=== PATIENT | male | born 1945 | race Caucasian/White ===

== ENCOUNTER 2016-10-20 21:43 | Emergency (ER) | payer MEDICARE ==
[2016-10-20] MEDS ORDERED: Acetaminophen 500 MG TAB ONE (22:02)
[2016-10-20 22:30] LABS: #Basophils 0.1 thou/uL (0.0-0.2); #Eosinphils 0.1 thou/uL (0.0-0.7); Hemoglobin 13.9 g/dL (14.0-18.0); Mean Corpuscular Volume 93.5 fl (80.0-94.0)
[2016-10-20 22:38] LABS: #Lymphocytes 0.5 thou/uL (1.20-3.40); #Monocytes 0.7 thou/uL (0.11-0.59); #Neutrophils 7.4 thou/uL (1.40-6.50); %Basophils 0.9 % (0.0-1.0); %Eosinophils 1.3 % (0.0-10.0); %Lymphocytes 5.7 % (21.0-51.0); %Monocytes 7.8 % (0.0-10.0); %Neutrophils 84.3 % (42.0-75.0); Mean Corpuscular HGB CONC 32.3 g/dL (32.0-36.0); Mean Corpuscular Hemoglobin 30.2 pg (27.0-31.0); Mean Platelet Volume 8.8 fL (7.4-10.4); Platelet Count 144 thou/uL (130-400); RBC Distribution Width 13.7 % (11.5-14.5); White Blood Cell (WBC) Count 8.8 thou/uL (4.8-10.8)
--- NOTE | 2016-10-20 22:38 | RAD ---
TWO VIEWS CHEST: Date: 10-20-16 Provided Clinical History: Fever. FINDINGS: Comparison 12-07-14. Cardiac and mediastinal silhouette is unchanged in appearance. Vascular calcifications noted involv ing the aortic arch. Elevation of the right hemidiaphragm is again seen. Degenerative changes invo lving the spine. No focal consolidation, pleural fluid or pneumothorax apparent. IMPRESSION: No evidence for an acute cardiopulmonary process. POS: [facility]
[2016-10-20 22:45] LABS: ALT (SGPT) 66 U/L (0-55); AST (SGOT) 95 U/L (5-34); Albumin 4.4 g/dL (3.4-4.8); Alkaline Phosphatase 105 U/L (40-150); Anion Gap 21 mmol/L (10-20); BUN (Urea Nitrogen) 25 mg/dL (8.4-25.7); Bilirubin, Total 0.5 mg/dL (0.2-1.2); Calc. Creatinine Clearance 0 mL/min (70-130); Calcium 9.9 mg/dL (7.8-10.44); Carbon Dioxide 27 mmol/L (23-31); Chloride 101 mmol/L (98-107); Estimated GFR-MDRD 45; Globulin 2.5 g/dL (2.4-3.5); Glucose 104 mg/dL (80-115); Potassium 4.3 mmol/L (3.5-5.1); Protein, Total 6.9 g/dL (5.8-8.1); Sodium 145 mmol/L (136-145)
[2016-10-20 22:49] LABS: Bilirubin Negative (Negative); Blood, Urine Trace (Negative); Clarity Clear (Clear); Glucose, Urine (Dipstick) Negative (Negative); Leukocyte Negative (Negative); Nitrite Negative (Negative); Protein, Urine (Dipstick) 30 mg/dL (Neg-Trace); Specific Gravity, Urine 1.025 (1.005-1.030); Urobilinogen 0.2 mg/dL (0.2-1.0)
[2016-10-20 23:05] LABS: RBC/HPF 0-3 HPF (0-3); WBC/HPF 0-3 HPF (0-3)
[2016-10-20 23:06] LABS: Bacteria/HPF Rare-Few HPF (None Seen); Yeast-All Forms Rare HPF (None Seen)
--- NOTE | 2016-10-21 02:19 | ERRECORD ---
[facility] EMERGENCY RECORD HPI FEVER (ThuOct 21, 2016 00:26 LLDO) CHIEF COMPLAINT: Patient presents for evaluation of fever, Measured maximum temperature 101 to 101.9 degrees. HISTORIAN: History provided by patient, History provided by patient's spouse, see triage note. pt noted fever earlier this afternoon. has had no other s-sx in any system. feels perfectly normal. LOCATION: No localizing symptoms. QUALITY: denies any pain. SEVERITY: Currently there are no symptoms, Maximum severity of pain rated as 0/10, Current severity of pain rated as 0/10. TIME COURSE: Sudden onset of symptoms. ASSOCIATED WITH: No associated symptoms, Denies any other complaints. EXACERBATED BY: Patient's condition exacerbated by nothing. RELIEVED BY: Patient's condition relieved by nothing. ROS CONSTITUTIONAL: Negative constitutional review of systems. (ThuOct 21, 2016 00:30 LLDO) EYES: Negative eye review of systems, Historian denies eye pain, denies eye redness, denies eye discharge. (ThuOct 21, 2016 00:31 LLDO) ENT: Negative ears, nose, throat review of systems, Historian denies otalgia, denies rhinorrhea, denies sinus pain, denies sore throat. (ThuOct 21, 2016 00:31 LLDO) CARDIOVASCULAR: Negative cardiovascular review of systems, Historian denies chest pain, no radiation, Historian denies diaphoresis, denies paroxysmal nocturnal dyspnea, denies syncope. (ThuOct 21, 2016 00:31 LLDO) RESPIRATORY: Negative respiratory review of systems, Historian denies cough, denies shortness of breath, denies sputum. (ThuOct 21, 2016 00:31 LLDO) GI: Negative gastrointestinal review of systems, Historian denies abdominal pain, denies constipation, denies diarrhea, denies nausea, denies vomiting. (ThuOct 21, 2016 00:31 LLDO) MUSCULOSKELETAL: Negative musculoskeletal review of systems, Historian denies arthralgias, denies fall, denies injury, denies myalgias. (ThuOct 21, 2016 00:31 LLDO) NEUROLOGIC: Negative neurologic review of systems, Historian denies confusion, denies focal weakness, denies mental status changes, denies sensory changes. (ThuOct 21, 2016 00:31 LLDO) HEMO/LYMPHATIC: Normal hematologic/lymphatic system review, Historian denies abnormal blood clotting, denies gum bleeding, denies petechiae. (ThuOct 21, 2016 00:31 LLDO) ALLERGIC/IMMUNOLOGIC: Normal allergy/immunologic system review, Historian denies eczema, denies environmental allergies, denies food allergies. (ThuOct 21, 2016 00:31 LLDO) PSYCHIATRIC: Negative psychiatric review of systems, Historian denies alcohol abuse, denies anxiety, denies depression, denies drug abuse, denies hallucinations. (ThuOct 21, 2016 00:31 LLDO) &a-1R&a+25V*p+0X*[id number]*c202B*c15G*c2P*p-0X&a-25V&a+1R Name: Tato Zeng : 1945 M70 MedRec: [id number] AcctNum: [id number] Prepared: ThuOct 21, 2016 01:07 by Interface Page 1 of 4 pMD [facility] EMERGENCY RECORD NOTES: All systems reviewed, negative except as described above. (ThuOct 21, 2016 00:30 LLDO) PAST MEDICAL HISTORY MEDICAL HISTORY: Past medical history includes history of hypertension, which has been treated, Flu vaccine up to date, Tetanus immunization up to date, Pneumococcal vaccine up to date, , Tetanus immunization up to date, Pneumococcal vaccine up to date, Past medical history includes history of hyperlipidemia, Past medical history includes history of hypertension, which has been treated, Past medical history includes neurological disease, , Date of immunization: 2012, Past medical history includes vascular disease history, abdominal aortic aneurysm, Notes: , Flu vaccine up to date, Tetanus immunization up to date, Past medical history includes genitourinary history, BLADDER CA, Past medical history includes history of hypertension, which has been treated, Patient is compliant, Past medical history includes neurological disease, CVA 1999. (22:00 MDEB) MALE SURGICAL HISTORY: BLADDER CA - "SCAPING" BLADDER, Surgical history of appendectomy, Notes: CHILD. BLADDER REPLACEMENT-12/21/13. APPY AT 13 YO. (22:00 MDEB) PSYCHIATRIC HISTORY: , Notes: DENIES. (22:00 MDEB) SOCIAL HISTORY: Patient denies alcohol use, Patient denies drug use, Patient is a former tobacco user, smoked cigarettes, Patient quit smoking more than 10 years ago, Patient denies alcohol use, Patient denies drug use, Patient is a former tobacco user, smoked cigarettes, Patient quit smoking less than 10 years ago, Lives at home, with family, Social History includes Social History includes QUIT SMOKING WITH CVA IN 1999, Patient has no smoking history, Patient denies alcohol use, Patient denies drug use. VERIFIED 04/30/16. (22:00 MDEB) NOTES: Nursing records reviewed, Agree with nursing records, Medication list reviewed. (ThuOct 21, 2016 00:31 LLDO) KNOWN ALLERGIES Sulfa (Sulfonamide Antibiotics): Reaction: Rash, Severity: Severe, Source: Patient sulfamethoxazole (Unconfirmed) trimethoprim (Unconfirmed) CURRENT MEDICATIONS No recorded medications VITAL SIGNS VITAL SIGNS: BP: 165/76, Pulse: 106, Resp: 20, Temp: 101.6 (Tympanic), Pain: 0, O2 sat: 92 on Room Air, Time: 10/20/2016 21:58. (21:58 MDEB) BP: 127/78, Pulse: 94, Resp: 20, Temp: 100.8, O2 sat: 93 on RA, Time: 10/20/2016 23:18. (23:18 MDEB) &a-1R&a+25V*p+0X*b8650W*c202B*c15G*c2P*p-0X&a-25V&a+1R Name: Tato Zeng : 1945 M70 MedRec: [id number] AcctNum: [id number] Prepared: ThuOct 21, 2016 01:07 by Interface Page 2 of 4 pMD [facility] EMERGENCY RECORD BP: 118/70, Pulse: 94, Resp: 18, Temp: 99.6 (Temporal), O2 sat: 93 on Room Air, Time: 10/21/2016 00:40. (ThuOct 21, 2016 00:40 BGAL) PHYSICAL EXAM CONSTITUTIONAL: Vital Signs Reviewed, Patient febrile, temperature of 101.6, Pulse normal, Blood pressure normal, Respiratory rate normal, Normal pulse oximetry, Patient appears non toxic, Patient appears pain free, Patient alert and oriented to person, place and time, Nursing notes reviewed. (ThuOct 21, 2016 00:30 LLDO) HEAD: Head exam normal, Head exam included findings of head atraumatic, normocephalic. (ThuOct 21, 2016 00:31 LLDO) EYES: Eye exam normal, Eye exam included findings of eyelids normal to inspection, Pupils equally round and reactive to light, Extraocular muscles intact. (ThuOct 21, 2016 00:31 LLDO) ENT: ENT exam normal, Ear exam normal, Nose exam normal. (ThuOct 21, 2016 00:31 LLDO) NECK: Neck exam normal, Neck exam included findings of normal range of motion, Trachea midline, no meningeal signs, no tenderness. (ThuOct 21, 2016 00:31 LLDO) RESPIRATORY CHEST: Respiratory and chest exam normal, Respiratory exam included findings of no respiratory distress, Breath sounds clear, Chest exam included findings of chest movement symmetrical, Chest expansion equal. (ThuOct 21, 2016 00:31 LLDO) CARDIOVASCULAR: Cardiovascular assessment normal, Cardiovascular exam included findings of heart rate regular rate and rhythm, Heart sounds normal. (ThuOct 21, 2016 00:31 LLDO) ABDOMEN MALE: Abdominal exam normal, Abdominal exam included findings of abdomen nontender, Bowel sounds normal, no peritoneal signs. (ThuOct 21, 2016 00:31 LLDO) BACK: Back exam normal, Back exam included findings of normal inspection, range of motion normal. (ThuOct 21, 2016 00:31 LLDO) UPPER EXTREMITY: Upper extremity exam normal, Upper extremity exam included findings of inspection normal, Range of motion normal. (ThuOct 21, 2016 00:31 LLDO) LOWER EXTREMITY: Lower extremity exam normal, Lower extremity exam included findings of inspection normal, Range of motion normal. (ThuOct 21, 2016 00:31 LLDO) NEURO: Neuro exam normal, Neuro exam findings include patient oriented to person, place and time, Speech normal, Winston coma scale 15. (ThuOct 21, 2016 00:31 LLDO) SKIN: Skin exam normal, Skin exam included findings of skin warm, dry, and normal in color, no rash. (ThuOct 21, 2016 00:31 LLDO) PSYCHIATRIC: Psychiatric exam normal, Psychiatric exam included findings of patient oriented to person place and time, Normal affect, Judgment normal. (ThuOct 21, 2016 00:31 LLDO) MEDICATION ADMINISTRATION SUMMARY Drug Name: *Tylenol Extra Strength, Dose Ordered: 2 tab(s), Route: &a-1R&a+25V*p+0X*h9339M*c202B*c15G*c2P*p-0X&a-25V&a+1R Name: Tato Zeng : 1945 M70 MedRec: [id number] AcctNum: [id number] Prepared: ThuOct 21, 2016 01:07 by Interface Page 3 of 4 pMD [facility] EMERGENCY RECORD Oral, Status: Given, Time: 22:00 10/20/2016, *Additional information available in notes, Detailed record available in Medication Service section. DOCTOR NOTES (ThuOct 21, 2016 00:49 LLDO) TEXT: although w/u seems neg. pt says he has gone through this process before and he usually grows bacteria in his urine, even when the ua is negative. says cipro always takes care of the infection. he is asking for cipro now and is willing to stop the meds if the urine culture is negative. not the usual approach but pt is adamant. PROBLEM LIST No recorded problems DIAGNOSIS (ThuOct 21, 2016 00:32 LLDO) FINAL: PRIMARY: Fever. PRESCRIPTION (ThuOct 21, 2016 00:56 LLDO) Cipro tablet: TABLET : 500 mg : ORAL : Quantity: 1 Unit: tab(s) Route: ORAL Schedule: 2 times a day Dispense: 20 May substitute. Refills: No Refills . NOTES: No Refills. DISPOSITION PATIENT: Disposition Type: Discharge, Disposition: *Discharge Home. (ThuOct 21, 2016 00:32 LLDO) Patient left the department. (ThuOct 21, 2016 01:01 BGAL) [place]: ALEM=GLORIA Bryan, Kellie TOLEDO=MD Imelda, Berhane JAY=GLORIA Rodriguez, [place] &a-1R&a+25V*p+0X*h4444Q*c202B*c15G*c2P*p-0X&a-25V&a+1R Name: Tato Zeng : 1945 M70 MedRec: [id number] AcctNum: [id number] Prepared: Prudence Oct 21, 2016 01:07 by Interface Page 4 of 4 pMD MTDD
--- NOTE | 2016-10-21 02:22 | PICIS ---
[facility] EMERGENCY RECORD TRIAGE (22:00 MDEB) PATIENT: NAME: Tato Zeng, AGE: 70, GENDER: male, : Sun 1945, TIME OF GREET: ThuOct 20, 2016 21:43, PREFERRED LANGUAGE: Kyrgyz, RACE: WHITE, ETHNICITY: Not or , FALL RISK: NO, ECODE BILLING MAP: [facility], SSN: [id number], Zip Code: [address], KG WEIGHT: 99.79, PHONE: , , , PERSON ID: [id number], PCP: MD Rowell Thomas. (22:00 MDEB) TRIAGE NOTES: FEVER, POSS BLADDER. (22:00 MDEB) COMPLAINT: FEVER, HIGH BLOOD PRESSURE, DEHYDRATION. (22:00 MDEB) ADMISSION: URGENCY: 3 Urgent, ADMISSION SOURCE: Home, TRANSPORT: Walk-in, BED: TRIAGE. (22:00 MDEB) PAIN: Notes: DENIES AT THIS TIME. (22:00 MDEB) IMMUNIZATIONS: Tetanus immunization up to date, Pneumococcal vaccine up to date. (22:00 MDEB) TRIAGE SCREENING: Patient denies suicidal ideation, Patient denies presence of domestic violence. (22:00 MDEB) PROVIDERS: TRIAGE NURSE: Paradise Rodriguez RN. (22:00 MDEB) VITAL SIGNS: BP 165/76, Pulse 106, Resp 20, Temp 101.6, (Tympanic), Pain 0, O2 Sat 92, on Room Air, Time 10/20/2016 21:58. (21:58 MDEB) KNOWN ALLERGIES Sulfa (Sulfonamide Antibiotics): Reaction: Rash, Severity: Severe, Source: Patient sulfamethoxazole (Unconfirmed) trimethoprim (Unconfirmed) CURRENT MEDICATIONS No recorded medications VITAL SIGNS VITAL SIGNS: BP: 165/76, Pulse: 106, Resp: 20, Temp: 101.6 (Tympanic), Pain: 0, O2 sat: 92 on Room Air, Time: 10/20/2016 21:58. (21:58 MDEB) BP: 127/78, Pulse: 94, Resp: 20, Temp: 100.8, O2 sat: 93 on RA, Time: 10/20/2016 23:18. (23:18 MDEB) BP: 118/70, Pulse: 94, Resp: 18, Temp: 99.6 (Temporal), O2 sat: 93 on Room Air, Time: 10/21/2016 00:40. (ThuOct 21, 2016 00:40 BGAL) NURSING ASSESSMENT: ENT (ThuOct 21, 2016 01:00 BGAL) CONSTITUTIONAL: Patient arrives ambulatory, Gait steady, History obtained from patient, Patient appears comfortable, Patient cooperative, Patient alert, Oriented to person, place and time, Skin warm, Skin dry, Skin normal in color, Mucous membranes pink, Mucous membranes moist, Patient is well-groomed, Patient complains of Fever. PAIN: Patient rates pain as 0 out of 10. ENT: Ear assessment findings include ear normal to inspection, Nasal assessment findings include nose normal to inspection, Sinuses normal, Nasal mucosa normal, Mouth and throat assessment findings &a-1R&a+25V*p+0X*g7970U*c202B*c15G*c2P*p-0X&a-25V&a+1R Name: Tato Zeng : 1945 M70 MedRec: [id number] AcctNum: [id number] Prepared: ThuOct 21, 2016 01:07 by Interface Page 1 of 10 pMD [facility] EM[facility]GENCY RECORD include mouth inspection normal, Uvula normal, Tonsils normal, Mucous membranes pink, and moist, Able to swallow, Speech normal, Associated with fever, Maximum temperature (degree F) 101.6, orally. RESPIRATORY/CHEST: Breath sounds clear, Respiratory assessment findings include respiratory effort easy, Respirations regular, Conversing normally, Neck and chest exam findings include trachea midline, Chest expansion equal, Chest movement symmetrical. SAFETY: Side rails up, Cart/Stretcher in lowest position, Family at bedside, Call light within reach, Hospital ID band on. NURSING PROCEDURE: DISCHARGE NOTE (ThuOct 21, 2016 01:01 BGAL) DISCHARGE: Patient discharged to home, ambulating without assistance, friend driving, accompanied by friend, Summary of Care printed/ provided, Patient requested and was provided an electronic copy of Discharge Instructions, Transition record given to patient, Discharge instructions given to patient, Simple or moderate discharge teaching performed, Prescriptions given and instructions on side effects given, Above person(s) verbalized understanding of discharge instructions and follow-up care. BELONGINGS: Belongings and valuables with patient at time of discharge include:, Belongings remain with patient, Valuables remain with patient. NOTES: Notes: DC'D HOME WITH RX AND INSTRUCTIONS. PT. AMB TO [facility]. PT. AOX4. NURSING PROCEDURE: ENT (23:47 BGAL) PATIENT IDENTIFIER: Patient actively involved in identification process, Patient's identity verified by patient stating name, Patient's identity verified by patient stating date, Patient's identity verified by hospital ID alan. ENT: Nasal swab collected, labeled in the presence of the patient and sent to lab for testing of, influenza A, influenza B, collected by GLORIA Hopkins, Throat swab collected, labeled in the presence of the patient and sent to the lab for testing of, rapid strep, collected by GLORIA Hopkins. SAFETY: Side rails up, Cart/Stretcher in lowest position, Family at bedside, Call light within reach, Hospital ID band on. NURSING PROCEDURE: NURSE NOTES NURSES NOTES: Notes: PT MOVED FROM [facility] TO [facility]. (23:13 MDEB) Notes: TEMP DOWN. (23:18 MDEB) VITAL SIGNS: BP: 127, / 78, Pulse: 94, Resp: 20, Temp: 100.8, O2 sat: 93, on: RA. (23:18 MDEB) ORDER DETAILS Order Name: CBC with Differential, Status: Active, Time: 22:07 10/20/2016, User: PIERRE, &a-1R&a+25V*p+0X*f5977P*c202B*c15G*c2P*p-0X&a-25V&a+1R Name: Tato Zeng : 1945 M70 MedRec: [id number] AcctNum: [id number] Prepared: Prudence Oct 21, 2016 01:07 by Interface Page 2 of 10 pMD [facility] EM[facility]GENCY RECORD - Ordered for: MD Segura Lloyd, - Entered by: GLORIA Rodriguez, Paradise Doherty Oct 20, 2016 22:07, - Quantity: 1, Order Name: Comprehensive Metabolic Panel, Status: Active, Time: 22:07 10/20/2016, User: PIERRE, - Ordered for: MD Segura Lloyd, - Entered by: GLORIA Rodriguez, Paradise Doherty Oct 20, 2016 22:07, - Quantity: 1, Order Name: Culture, Urine, Status: Active, Time: 23:11 10/20/2016, User: TRE, - Ordered for: MD Segura Lloyd, - Entered by: MD Segura Lloyd - Mon Oct 20, 2016 23:11, - Quantity: 1, Order Name: Influenza A&B Ag Screen, Status: Active, Time: 23:11 10/20/2016, User: TRE, - Ordered for: MD Segura Lloyd, - Entered by: MD Segura Lloyd - Mon Oct 20, 2016 23:11, - Quantity: 1, Order Name: Strep Group A Screen, Status: Active, Time: 23:11 10/20/2016, User: TRE, - Ordered for: MD Segura Lloyd, - Entered by: MD Segura Lloyd - Mon Oct 20, 2016 23:11, - Quantity: 1, Order Name: Urinalysis w/ Rflx Microscopic, Status: Active, Time: 22:07 10/20/2016, User: PIERRE, - Ordered for: MD Segura Lloyd, - Entered by: GLORIA Rodriguez, Paradise [facility] Oct 20, 2016 22:07, - Quantity: 1, Order Name: XR Chest Pa & Lat STANDARD, Status: Active, Time: 22:06 10/20/2016, User: PIERRE, - Ordered for: MD Segura Lloyd, - Entered by: GLORIA Rodriguez, Paradise [facility] Oct 20, 2016 22:06, - Quantity: 1. MEDICATION ADMINISTRATION SUMMARY Drug Name: *Tylenol Extra Strength, Dose Ordered: 2 tab(s), Route: Oral, Status: Given, Time: 22:00 10/20/2016, *Additional information available in notes, Detailed record available in Medication Service section. MEDICATION SERVICE (22:00 [facility]) Tylenol Extra Strength: Order: Tylenol Extra Strength (acetaminophen) - Dose: 2 tab(s) : Oral Schedule: Now Notes: ADMINISTERED VIA NURSING PROTOCOL FOR FEVER. Ordered by: Berhane Segura MD Entered by: Paradise Rodriguez RN ThuOct 20, 2016 22:04 Documented as given by: Paradise Rodriguez RN ThuOct 20, 2016 22:00 Patient, Medication, Dose, Route and Time verified prior to &a-1R&a+25V*p+0X*c9095O*c202B*c15G*c2P*p-0X&a-25V&a+1R Name: Tato Zeng : 1945 M70 MedRec: [id number] AcctNum: [id number] Prepared: ThuOct 21, 2016 01:07 by Interface Page 3 of 10 pMD [facility] EM[facility]GENCY RECORD administration. Amount given: 2 TAB, Site: Medication administered P.O., Correct patient, time, route, dose and medication confirmed prior to administration, Patient advised of actions and side-effects prior to administration, Allergies confirmed and medications reviewed prior to administration, Patient in position of comfort, Family at bedside, PT IN TRIAGE AT THIS TIME. HPI FEVER (ThuOct 21, 2016 00:26 LLDO) CHIEF COMPLAINT: Patient presents for evaluation of fever, Measured maximum temperature 101 to 101.9 degrees. HISTORIAN: History provided by patient, History provided by patient's spouse, see triage note. pt noted fever earlier this afternoon. has had no other s-sx in any system. feels perfectly normal. LOCATION: No localizing symptoms. QUALITY: denies any pain. SEVERITY: Currently there are no symptoms, Maximum severity of pain rated as 0/10, Current severity of pain rated as 0/10. TIME COURSE: Sudden onset of symptoms. ASSOCIATED WITH: No associated symptoms, Denies any other complaints. EXACERBATED BY: Patient's condition exacerbated by nothing. RELIEVED BY: Patient's condition relieved by nothing. ROS CONSTITUTIONAL: Negative constitutional review of systems. (ThuOct 21, 2016 00:30 LLDO) EYES: Negative eye review of systems, Historian denies eye pain, denies eye redness, denies eye discharge. (ThuOct 21, 2016 00:31 LLDO) ENT: Negative ears, nose, throat review of systems, Historian denies otalgia, denies rhinorrhea, denies sinus pain, denies sore throat. (ThuOct 21, 2016 00:31 LLDO) CARDIOVASCULAR: Negative cardiovascular review of systems, Historian denies chest pain, no radiation, Historian denies diaphoresis, denies paroxysmal nocturnal dyspnea, denies syncope. (ThuOct 21, 2016 00:31 LLDO) RESPIRATORY: Negative respiratory review of systems, Historian denies cough, denies shortness of breath, denies sputum. (ThuOct 21, 2016 00:31 LLDO) GI: Negative gastrointestinal review of systems, Historian denies abdominal pain, denies constipation, denies diarrhea, denies nausea, denies vomiting. (ThuOct 21, 2016 00:31 LLDO) MUSCULOSKELETAL: Negative musculoskeletal review of systems, Historian denies arthralgias, denies fall, denies injury, denies myalgias. (ThuOct 21, 2016 00:31 LLDO) NEUROLOGIC: Negative neurologic review of systems, Historian denies confusion, denies focal weakness, denies mental status changes, denies sensory changes. (ThuOct 21, 2016 00:31 LLDO) HEMO/LYMPHATIC: Normal hematologic/lymphatic system review, &a-1R&a+25V*p+0X*q6017L*c202B*c15G*c2P*p-0X&a-25V&a+1R Name: Tato Zeng : 1945 M70 MedRec: [id number] AcctNum: [id number] Prepared: ThuOct 21, 2016 01:07 by Interface Page 4 of 10 pMD [facility] EMERGENCY RECORD Historian denies abnormal blood clotting, denies gum bleeding, denies petechiae. (ThuOct 21, 2016 00:31 LLDO) ALLERGIC/IMMUNOLOGIC: Normal allergy/immunologic system review, Historian denies eczema, denies environmental allergies, denies food allergies. (ThuOct 21, 2016 00:31 LLDO) PSYCHIATRIC: Negative psychiatric review of systems, Historian denies alcohol abuse, denies anxiety, denies depression, denies drug abuse, denies hallucinations. (ThuOct 21, 2016 00:31 LLDO) NOTES: All systems reviewed, negative except as described above. (ThuOct 21, 2016 00:30 LLDO) PAST MEDICAL HISTORY MEDICAL HISTORY: Past medical history includes history of hypertension, which has been treated, Flu vaccine up to date, Tetanus immunization up to date, Pneumococcal vaccine up to date, , Tetanus immunization up to date, Pneumococcal vaccine up to date, Past medical history includes history of hyperlipidemia, Past medical history includes history of hypertension, which has been treated, Past medical history includes neurological disease, , Date of immunization: 2012, Past medical history includes vascular disease history, abdominal aortic aneurysm, Notes: , Flu vaccine up to date, Tetanus immunization up to date, Past medical history includes genitourinary history, BLADDER CA, Past medical history includes history of hypertension, which has been treated, Patient is compliant, Past medical history includes neurological disease, CVA 1999. (22:00 MDEB) MALE SURGICAL HISTORY: BLADDER CA - "SCAPING" BLADDER, Surgical history of appendectomy, Notes: CHILD. BLADDER REPLACEMENT-12/21/13. APPY AT 13 YO. (22:00 MDEB) PSYCHIATRIC HISTORY: , Notes: DENIES. (22:00 MDEB) SOCIAL HISTORY: Patient denies alcohol use, Patient denies drug use, Patient is a former tobacco user, smoked cigarettes, Patient quit smoking more than 10 years ago, Patient denies alcohol use, Patient denies drug use, Patient is a former tobacco user, smoked cigarettes, Patient quit smoking less than 10 years ago, Lives at home, with family, Social History includes Social History includes QUIT SMOKING WITH CVA IN 1999, Patient has no smoking history, Patient denies alcohol use, Patient denies drug use. VERIFIED 04/30/16. (22:00 MDEB) NOTES: Nursing records reviewed, Agree with nursing records, Medication list reviewed. (ThuOct 21, 2016 00:31 LLDO) PHYSICAL EXAM CONSTITUTIONAL: Vital Signs Reviewed, Patient febrile, temperature of 101.6, Pulse normal, Blood pressure normal, Respiratory rate normal, Normal pulse oximetry, Patient appears non toxic, Patient appears pain free, Patient alert and oriented to person, place and time, Nursing notes reviewed. (ThuOct 21, 2016 00:30 LLDO) &a-1R&a+25V*p+0X*v9951J*c202B*c15G*c2P*p-0X&a-25V&a+1R Name: Tato Zeng : 1945 M70 MedRec: [id number] AcctNum: [id number] Prepared: ThuOct 21, 2016 01:07 by Interface Page 5 of 10 pMD [facility] EMERGENCY RECORD HEAD: Head exam normal, Head exam included findings of head atraumatic, normocephalic. (ThuOct 21, 2016 00:31 LLDO) EYES: Eye exam normal, Eye exam included findings of eyelids normal to inspection, Pupils equally round and reactive to light, Extraocular muscles intact. (ThuOct 21, 2016 00:31 LLDO) ENT: ENT exam normal, Ear exam normal, Nose exam normal. (ThuOct 21, 2016 00:31 LLDO) NECK: Neck exam normal, Neck exam included findings of normal range of motion, Trachea midline, no meningeal signs, no tenderness. (ThuOct 21, 2016 00:31 LLDO) RESPIRATORY CHEST: Respiratory and chest exam normal, Respiratory exam included findings of no respiratory distress, Breath sounds clear, Chest exam included findings of chest movement symmetrical, Chest expansion equal. (ThuOct 21, 2016 00:31 LLDO) CARDIOVASCULAR: Cardiovascular assessment normal, Cardiovascular exam included findings of heart rate regular rate and rhythm, Heart sounds normal. (ThuOct 21, 2016 00:31 LLDO) ABDOMEN MALE: Abdominal exam normal, Abdominal exam included findings of abdomen nontender, Bowel sounds normal, no peritoneal signs. (ThuOct 21, 2016 00:31 LLDO) BACK: Back exam normal, Back exam included findings of normal inspection, range of motion normal. (ThuOct 21, 2016 00:31 LLDO) UPPER EXTREMITY: Upper extremity exam normal, Upper extremity exam included findings of inspection normal, Range of motion normal. (ThuOct 21, 2016 00:31 LLDO) LOWER EXTREMITY: Lower extremity exam normal, Lower extremity exam included findings of inspection normal, Range of motion normal. (ThuOct 21, 2016 00:31 LLDO) NEURO: Neuro exam normal, Neuro exam findings include patient oriented to person, place and time, Speech normal, [place] coma scale 15. (ThuOct 21, 2016 00:31 LLDO) SKIN: Skin exam normal, Skin exam included findings of skin warm, dry, and normal in color, no rash. (ThuOct 21, 2016 00:31 LLDO) PSYCHIATRIC: Psychiatric exam normal, Psychiatric exam included findings of patient oriented to person place and time, Normal affect, Judgment normal. (ThuOct 21, 2016 00:31 LLDO) EVENTS TRANSFER: Triage to Emergency Triage. (ThuOct 20, 2016 22:00 MDEB) Emergency Triage to Waiting. (22:01 MDEB) Emergency Waiting to Main ED -02. (23:11 BGAL) Removed from Emergency Main ED -02. (ThuOct 21, 2016 01:01 BGAL) DOCTOR NOTES (ThuOct 21, 2016 00:49 LLDO) TEXT: although w/u seems neg. pt says he has gone through this process before and he usually grows bacteria in his urine, even when the ua is negative. says cipro always takes care of the infection. he is asking for cipro now and is willing to stop the meds if the urine culture is negative. not the usual approach but pt is &a-1R&a+25V*p+0X*s4436I*c202B*c15G*c2P*p-0X&a-25V&a+1R Name: Tato Zeng : 1945 M70 MedRec: [id number] AcctNum: [id number] Prepared: ThuOct 21, 2016 01:07 by Interface Page 6 of 10 pMD [facility] EMERGENCY RECORD adamant. PROBLEM LIST No recorded problems DIAGNOSIS (ThuOct 21, 2016 00:32 LLDO) FINAL: PRIMARY: Fever. DISPOSITION PATIENT: Disposition Type: Discharge, Disposition: *Discharge Home. (ThuOct 21, 2016 00:32 LLDO) Patient left the department. (ThuOct 21, 2016 01:01 BGAL) INSTRUCTION (ThuOct 21, 2016 00:33 LLDO) DISCHARGE: FEVER UNCERTAIN CAUSE ADULT. FOLLOWUP: MD Lelia, Lm, Internal Medicine, [address] [place] [address], [address] [facility], [facility] [address], , Follow up with Primary Care Physician as needed. SPECIAL: Follow-up with your PCP. PRESCRIPTION (ThuOct 21, 2016 00:56 LLDO) Cipro tablet: TABLET : 500 mg : ORAL : Quantity: 1 Unit: tab(s) Route: ORAL Schedule: 2 times a day Dispense: 20 May substitute. Refills: No Refills . NOTES: No Refills. IMAGING (ThuOct 21, 2016 01:04 BGAL) *DISCHARGE INSTRUCTIONS RECEIPT: Image captured from scanner. *SUPPLY CHARGE SHEET: Image captured from scanner. ADMIN DIGITAL SIGNATURE: MD Segura Lloyd. (ThuOct 21, 2016 00:34 LLDO) MD Segura Lloyd. (ThuOct 21, 2016 00:56 LLDO) MD Segura Lloyd. (ThuOct 21, 2016 00:56 LLDO) MD Segura Lloyd. (ThuOct 21, 2016 00:56 LLDO) MD Segura Lloyd. (ThuOct 21, 2016 00:56 LLDO) MD Segura Lloyd. (ThuOct 21, 2016 00:56 LLDO) MD Segura Lloyd. (ThuOct 21, 2016 00:56 LLDO) MD Segura Lloyd. (ThuOct 21, 2016 00:56 LLDO) MD Segura Lloyd. (ThuOct 21, 2016 00:56 LLDO) MD Segura Lloyd. (ThuOct 21, 2016 00:56 LLDO) MD Segura Lloyd. (ThuOct 21, 2016 00:56 LLDO) MD Segura Lloyd. (ThuOct 21, 2016 00:56 LLDO) MD Segura Lloyd. (ThuOct 21, 2016 00:56 LLDO) RESULTS LABORATORY: Urinalysis w/ Rflx Microscopic Collection DT: ThuOct 20, 2016 22:33, Color Yellow , Range (Yellow), &a-1R&a+25V*p+0X*t1750M*c202B*c15G*c2P*p-0X&a-25V&a+1R Name: Tato Zeng : 1945 M70 MedRec: [id number] AcctNum: [id number] Prepared: ThuOct 21, 2016 01:07 by Interface Page 7 of 10 pMD [facility] EM[facility]GENCY RECORD Clarity Clear , Range (Clear), Specific [place], Urine 1.025 , Range (1.005-1.030), pH, Urine 6.0 , Range (5.0-9.0), Leukocyte Negative , Range (Negative), Nitrite Negative , Range (Negative), *Protein, Urine (Dipstick) 30 - H mg/dL, Range (Neg-Trace), Glucose, Urine (Dipstick) Negative mg/dL, Range (Negative), Ketone, Urine Negative mg/dL, Range (Negative), Urobilinogen 0.2 mg/dL, Range (0.2-1.0), Bilirubin Negative , Range (Negative), *Blood, Urine Trace - H , Range (Negative). (23:05 [facility]) Comprehensive Metabolic Panel Collection DT: ThuOct 20, 2016 22:25, Sodium 145 mmol/L, Range (136-145), Potassium 4.3 mmol/L, Range (3.5-5.1), Chloride 101 mmol/L, Range (98-107), Carbon Dioxide 27 mmol/L, Range (23-31), *Anion Gap 21 - H mmol/L, Range (10-20), BUN (Urea Nitrogen) 25 mg/dL, Range (8.4-25.7), *Creatinine 1.54 - H mg/dL, Range (0.7-1.3), Estimated GFR-MDRD 45 , Reference Range for Estimated GFR: Greater than 90, mL/min/1.73 m2 NOTE: The MDRD equation has not been validated for use, with the elderly (over 70 years of age), women, patients with, serious comorbid condition or persons with extremes of body size, muscle, mass, or nutritional status. , Glucose 104 mg/dL, Range (80-115), Calcium 9.9 mg/dL, Range (7.8-10.44), Bilirubin, Total 0.5 mg/dL, Range (0.2-1.2), Protein, Total 6.9 g/dL, Range (5.8-8.1), NOTE: Plasma values are generally 0.3 to 0.5 g/dL higher than serum values, due to the presence of fibrinogen. , Albumin 4.4 g/dL, Range (3.4-4.8), Globulin 2.5 g/dL, Range (2.4-3.5), Alb/Glob Ratio 1.8 g/dL, Range (1.2-2.2), Alkaline Phosphatase 105 U/L, Range (40-150), *AST (SGOT) 95 - H U/L, Range (5-34), *ALT (SGPT) 66 - H U/L, Range (0-55). (23:05 [facility]) CBC with Differential Collection DT: ThuOct 20, 2016 22:25, See comment below , Comment PT IN LOBBY , White Blood Cell (WBC) Count 8.8 thou/uL, Range (4.8-10.8), *Red Blood Cell (RBC) Count 4.60 - L mill/uL, Range (4.70-6.10), *Hemoglobin 13.9 - L g/dL, Range (14.0-18.0), Hematocrit 43.0 %, Range (42.0-52.0), Mean Corpuscular Volume 93.5 fl, Range (80.0-94.0), Mean Corpuscular Hemoglobin 30.2 pg, Range (27.0-31.0), Mean Corpuscular HGB CONC 32.3 g/dL, Range (32.0-36.0), RBC Distribution Width 13.7 %, Range (11.5-14.5), &a-1R&a+25V*p+0X*h4607C*c202B*c15G*c2P*p-0X&a-25V&a+1R Name: Tato Zeng : 1945 M70 MedRec: [id number] AcctNum: [id number] Prepared: ThuOct 21, 2016 01:07 by Interface Page 8 of 10 pMD [facility]GENCY RECORD Platelet Count 144 thou/uL, Range (130-400), Mean Platelet Volume 8.8 fL, Range (7.4-10.4), *%Neutrophils 84.3 - H %, Range (42.0-75.0), *%Lymphocytes 5.7 - L %, Range (21.0-51.0), %Monocytes 7.8 %, Range (0.0-10.0), %Eosinophils 1.3 %, Range (0.0-10.0), %Basophils 0.9 %, Range (0.0-1.0), *#Neutrophils 7.4 - H thou/uL, Range (1.40-6.50), *#Lymphocytes 0.5 - L thou/uL, Range (1.20-3.40), *#Monocytes 0.7 - H thou/uL, Range (0.11-0.59), #Eosinphils 0.1 thou/uL, Range (0.0-0.7), #Basophils 0.1 thou/uL, Range (0.0-0.2). (23:05 MDEB) MICROBIOLOGY: Strep Group A Screen: [id number] Collection DT: ThuOct 20, 2016 23:52, See comment below , @ ER ROOM#: ED-02 @Spec Desc changed from PENDING to Swab by DIANNA. , Source: Tonsil Spec Desc: Swab, Strep A Negative CDC recommends , confirmation by , culture on all , negative , Strep negative line 1 Group A , Streptococcus rapid , screens. Please , order , Strep negative line 2 a throat culture if , clinically , indicated. , Rapid Strep Screen:Throat Negative . (ThuOct 21, 2016 00:15 MDEB) LABORATORY: Urine Microscopic Collection DT: ThuOct 20, 2016 22:33, RBC/HPF 0-3 HPF, Range (0-3), WBC/HPF 0-3 HPF, Range (0-3), *Squamous Epithelial 4-6 - H HPF, Range (0-3), Bacteria/HPF Rare-Few HPF, Range (None Seen), Yeast-All Forms Rare HPF, Range (None Seen). (ThuOct 21, 2016 00:15 MDEB) Urinalysis w/ Rflx Microscopic Collection DT: ThuOct 20, 2016 22:33, Color Yellow , Range (Yellow), Clarity Clear , Range (Clear), Specific [place], Urine 1.025 , Range (1.005-1.030), pH, Urine 6.0 , Range (5.0-9.0), Leukocyte Negative , Range (Negative), Nitrite Negative , Range (Negative), *Protein, Urine (Dipstick) 30 - H mg/dL, Range (Neg-Trace), Glucose, Urine (Dipstick) Negative mg/dL, Range (Negative), Ketone, Urine Negative mg/dL, Range (Negative), Urobilinogen 0.2 mg/dL, Range (0.2-1.0), Bilirubin Negative , Range (Negative), &a-1R&a+25V*p+0X*a9098N*c202B*c15G*c2P*p-0X&a-25V&a+1R Name: Tato Zeng : 1945 M70 MedRec: [id number] AcctNum: [id number] Prepared: ThuOct 21, 2016 01:07 by Interface Page 9 of 10 pMD [facility]GENCY RECORD *Blood, Urine Trace - H , Range (Negative). (ThuOct 21, 2016 00:15 MDEB) [place]: ALEM=GLORAI Bryan, Kellie TOLEDO=MD Imelda, Berhane GONGEB=GLORIA Rodriguez, Paradise &a-1R&a+25V*p+0X*k7148X*c202B*c15G*c2P*p-0X&a-25V&a+1R Name: Tato Zeng : 1945 M70 MedRec: [id number] AcctNum: [id number] Prepared: ThuOct 21, 2016 01:07 by Interface Page 10 of 10 pMD [facility] MEDICATION RECONCILIATION You were seen in the Emergency Department on: ThuOct 20, 2016 KNOWN ALLERGIES Sulfa (Sulfonamide Antibiotics): Reaction: Rash, Severity: Severe, Source: Patient sulfamethoxazole (Unconfirmed) trimethoprim (Unconfirmed) MEDICATIONS GIVEN WHILE IN THE EMERGENCY DEPARTMENT Tylenol Extra Strength (acetaminophen) - Dose: 2 tab(s) : Oral Notes from the emergency department Reviewed with family Reviewed with patient Reviewed with family Reviewed with patient PRESCRIPTIONS (1) &a-1R&a+25V*p+0X*v4569T*c202B*c15G*c2P*p-0X&a-25V&a+1R Name: Tato Zeng : 1945 M70 MedRec: [id number] AcctNum: [id number] Prepared: ThuOct 21, 2016 01:07 by Interface pMD [facility]
== END 2016-10-21 00:59 | disposition home or self-care (01) ==
LOC: MADERS 21:43
DX: R50.9 Fever, unspecified (principal); E78.5 Hyperlipidemia, unspecified; I71.4 Abdominal aortic aneurysm, without rupture; I10 Essential (primary) hypertension; Z86.73 Personal history of transient ischemic attack (TIA), and cerebral infarction without residual deficits; Z87.891 Personal history of nicotine dependence
CPT/HCPCS: 36415; 71020; 80053; 81003; 81015; 85025; 87077; 87086; 87186; 87430; 99283

== ENCOUNTER 2016-10-24 12:35 | Outpatient (CLI) | payer MEDICARE | END 2016-10-24 12:36 | disposition home or self-care (01) | LOC: MADLAB 12:35 | PROVIDERS: ATTEND Internal Medicine | DX: M10.9 Gout, unspecified (principal) | CPT/HCPCS: 36415; 84550 ==

== ENCOUNTER 2016-12-28 23:52 | Emergency (ER) | payer MEDICARE ==
[~2016-12-28 23:52] MED LIST: Sodium Chloride 0.9% 1,000 ML BAG ONE; Sodium Chloride 0.9% 100 ML BAG ONE
[2016-12-29] MEDS ORDERED: Acetaminophen 500 MG TAB ONE (00:16)
[2016-12-29] MEDS ORDERED: Ondansetron HCl/PF 4 MG/2 ML Vial ONE (00:16)
[2016-12-29] MEDS ORDERED: Ibuprofen 600 MG TAB ONE (00:39)
[2016-12-29 00:51] LABS: ALT (SGPT) 25 U/L (0-55); Albumin 4.3 g/dL (3.4-4.8); Alkaline Phosphatase 84 U/L (40-150); Anion Gap 21 mmol/L (10-20); BUN (Urea Nitrogen) 36 mg/dL (8.4-25.7); Bilirubin, Total 0.4 mg/dL (0.2-1.2); Calc. Creatinine Clearance 0 mL/min (70-130); Calcium 9.1 mg/dL (7.8-10.44); Carbon Dioxide 23 mmol/L (23-31); Chloride 106 mmol/L (98-107); Estimated GFR-MDRD 40; Glucose 148 mg/dL (83-110); Potassium 4.8 mmol/L (3.5-5.1); Protein, Total 7.3 g/dL (5.8-8.1); Sodium 145 mmol/L (136-145)
[2016-12-29 00:53] LABS: AST (SGOT) 32 U/L (5-34)
[2016-12-29 00:56] LABS: #Basophils 0.1 thou/uL (0.0-0.2); #Eosinphils 0.1 thou/uL (0.0-0.7); #Lymphocytes 0.5 thou/uL (1.20-3.40); #Monocytes 0.7 thou/uL (0.11-0.59); #Neutrophils 9.8 thou/uL (1.40-6.50); %Basophils 0.5 % (0.0-1.0); %Eosinophils 0.5 % (0.0-10.0); %Lymphocytes 4.3 % (21.0-51.0); %Monocytes 6.3 % (0.0-10.0); %Neutrophils 88.5 % (42.0-75.0); Hemoglobin 14.2 g/dL (14.0-18.0); Mean Corpuscular HGB CONC 32.4 g/dL (32.0-36.0); Mean Corpuscular Hemoglobin 30.3 pg (27.0-31.0); Mean Corpuscular Volume 93.3 fL (80.0-94.0); Mean Platelet Volume 8.8 fL (7.4-10.4); Platelet Count 177 thou/uL (130-400); RBC Distribution Width 13.9 % (11.5-14.5); Red Blood Cell (RBC) Count 4.69 mill/uL (4.70-6.10); White Blood Cell (WBC) Count 11.1 thou/uL (4.8-10.8)
[2016-12-29 00:57] LABS: Platelet Clumps SLIGHT
[2016-12-29] MEDS ORDERED: Piperacillin/Tazobactam 3.375 GM VIAL ONE (01:26)
[2016-12-29 01:29] LABS: Bilirubin Negative (Negative); Blood, Urine Moderate (Negative); Clarity Slightly Cloudy (Clear); Glucose, Urine (Dipstick) Negative (Negative); Leukocyte Negative (Negative); Nitrite Negative (Negative); Protein, Urine (Dipstick) 100 mg/dL (Neg-Trace); Urobilinogen 0.2 mg/dL (0.2-1.0); pH, Urine 5.5 (5.0-9.0)
[2016-12-29 01:39] LABS: Bacteria/HPF 3+ HPF (None Seen); Hyaline Casts/LPF 7-10 HYALINE CAST LPF (0-3 Hyaline); Other Casts/LPF 7-10 MIXED CASTS LPF (0-3 Hyaline); RBC/HPF 21-50 HPF (0-3)
--- NOTE | 2016-12-29 07:54 | RAD ---
EXAM: CHEST 2 VIEWS: COMPARISON: 10/20/16, 06/19/16. HISTORY: Fever. FINDINGS: Persistent elevation of the right hemidiaphragm. Stable cardiac silhouette. Slight elongation of the aorta. Pulmonary vessels and hilum are normal. Linear opacity in both lung bases likely represents subsegmental atelectasis. No masses or consol idation. No pneumothorax or pleural effusion. IMPRESSION: No acute cardiopulmonary process. POS: [facility]
== END 2016-12-29 02:01 | disposition short-term general hospital (02) ==
LOC: MADERS 23:52
DX: A41.9 Sepsis, unspecified organism (principal); K52.9 Noninfective gastroenteritis and colitis, unspecified; I10 Essential (primary) hypertension; E78.5 Hyperlipidemia, unspecified; Z87.891 Personal history of nicotine dependence; Z86.73 Personal history of transient ischemic attack (TIA), and cerebral infarction without residual deficits; Z79.82 Long term (current) use of aspirin; Z79.899 Other long term (current) drug therapy
CPT/HCPCS: 36415; 71020; 80053; 81003; 81015; 83605; 84443; 85025; 87040; 87086; 93005; 94760; 96361; 96365; 96375; J2405; J2543; J7050

== ENCOUNTER 2017-06-09 20:44 | Emergency (ER) | payer MEDICARE ==
[2017-06-09] MEDS ORDERED: Cefepime 1 GM VIAL ONE (21:48)
[2017-06-09 22:02] LABS: Bilirubin Negative (Negative); Blood, Urine Large (Negative); Clarity Turbid (Clear); Glucose, Urine (Dipstick) Negative (Negative); Leukocyte Small (Negative); Nitrite Negative (Negative); Protein, Urine (Dipstick) 100 mg/dL (Neg-Trace); Urobilinogen 0.2 mg/dL (0.2-1.0); pH, Urine 5.5 (5.0-9.0)
[2017-06-09 22:11] LABS: #Eosinphils 0.1 thou/uL (0.0-0.7); #Lymphocytes 0.6 thou/uL (1.20-3.40); #Monocytes 0.7 thou/uL (0.11-0.59); #Neutrophils 8.3 thou/uL (1.40-6.50); %Basophils 0.4 % (0.0-1.0); %Eosinophils 0.7 % (0.0-10.0); %Lymphocytes 5.8 % (21.0-51.0); %Monocytes 7.1 % (0.0-10.0); Hemoglobin 13.5 g/dL (14.0-18.0); Mean Corpuscular HGB CONC 32.2 g/dL (32.0-36.0); Mean Corpuscular Hemoglobin 29.5 pg (27.0-31.0); Mean Corpuscular Volume 91.7 fl (80.0-94.0); Mean Platelet Volume 8.7 fL (7.4-10.4); Platelet Count 162 thou/uL (130-400); RBC Distribution Width 13.4 % (11.5-14.5); Red Blood Cell (RBC) Count 4.56 mill/uL (4.70-6.10); White Blood Cell (WBC) Count 9.7 thou/uL (4.8-10.8)
[2017-06-09 22:11] LABS: Bacteria/HPF 4+ HPF (None Seen); Hyaline Casts/LPF 4-6 HYALINE CAST LPF (0-3 Hyaline); RBC/HPF GREATER THAN 50-TNTC HPF (0-3); Transitional Epithelial 0-3 HPF (0-3)
--- NOTE | 2017-06-09 22:14 | RAD ---
CHEST TWO VIEWS: 06/09/17 HISTORY: Fever. COMPARISON: 12/29/16. FINDINGS: Cardiac silhouette and pulmonary vasculature are unremarkable. Subtle predominantly linear infiltrat es at each base have progressed since the prior study and are apparent on the lateral view. There is no lobar consolidation, pneumothorax, or pleural fluid evident. IMPRESSION: Increasing bibasilar infiltrates. In the setting of fever, bibasilar pneumonitis must be considered . Please consider radiographic followup after medial treatment to evaluate for clearing. POS: [facility]
[2017-06-09 22:19] LABS: ALT (SGPT) 27 U/L (8-55); AST (SGOT) 25 U/L (5-34); Alkaline Phosphatase 81 U/L (40-150); Anion Gap 16 mmol/L (10-20); BUN (Urea Nitrogen) 30 mg/dL (8.4-25.7); Bilirubin, Total 0.5 mg/dL (0.2-1.2); Calc. Creatinine Clearance 0 mL/min (70-130); Calcium 10.1 mg/dL (7.8-10.44); Carbon Dioxide 28 mmol/L (23-31); Chloride 102 mmol/L (98-107); Estimated GFR-MDRD 40; Globulin 3.4 g/dL (2.4-3.5); Glucose 104 mg/dL (83-110); Potassium 3.6 mmol/L (3.5-5.1); Protein, Total 7.4 g/dL (5.8-8.1); Sodium 142 mmol/L (136-145)
[2017-06-09] MEDS ORDERED: Azithromycin 500 MG VIAL ONE (22:27)
== END 2017-06-09 23:51 | disposition short-term general hospital (02) ==
LOC: MADERS 20:44
DX: R65.10 Systemic inflammatory response syndrome (SIRS) of non-infectious origin without acute organ dysfunction (principal); E78.5 Hyperlipidemia, unspecified; I10 Essential (primary) hypertension; Z87.891 Personal history of nicotine dependence
CPT/HCPCS: 36415; 71020; 80053; 81003; 81015; 83605; 85025; 87040; 87077; 87086; 87149; 87186; 94760; 96365; 96367; J0456; J0692; J3370; J7050; J7070

== ENCOUNTER 2018-12-29 08:41 | Emergency (ER) | payer MEDICARE ==
[~2018-12-29 08:41] MED LIST changes: +Norepinephrine 4 MG/4 ML VIAL ONE; -Sodium Chloride 0.9% 1,000 ML BAG ONE; +Sodium Chloride 0.9% 500 ML BAG ONE
--- NOTE | 2018-12-29 09:51 | RAD ---
PORTABLE CHEST: History: SIRS. Comparison: 06-09-17 FINDINGS: Elevation of right hemidiaphragm is unchanged. There is stranding in both lung bases suggesting chron ic atelectasis and/or stranding which appears stable from the prior study. No evidence of infiltrate or vascular congestion. Heart and mediastinum unremarkable and unchanged. IMPRESSION: Stable chest findings. POS: [facility]
[2018-12-29 09:56] LABS: #Lymphocytes 0.8 thou/uL (1.20-3.40); #Monocytes 1.3 thou/uL (0.11-0.59); #Neutrophils 10.3 thou/uL (1.40-6.50); %Basophils 0.3 % (0.0-1.0); %Eosinophils 0.1 % (0.0-10.0); %Lymphocytes 6.7 % (21.0-51.0); %Monocytes 10.7 % (0.0-10.0); %Neutrophils 82.2 % (42.0-75.0); Mean Corpuscular HGB CONC 31.3 g/dL (32.0-36.0); Mean Corpuscular Hemoglobin 28.9 pg (27.0-31.0); Mean Corpuscular Volume 92.3 fL (78.0-98.0); Mean Platelet Volume 8.3 fL (7.4-10.4); Platelet Count 130 thou/uL (130-400); RBC Distribution Width 14.3 % (11.5-14.5); Red Blood Cell (RBC) Count 4.51 mill/uL (4.70-6.10); White Blood Cell (WBC) Count 12.5 thou/uL (4.8-10.8)
[2018-12-29 10:11] LABS: Bilirubin Small (Negative); Blood, Urine Moderate (Negative); Clarity Cloudy (Clear); Glucose, Urine (Dipstick) Negative (Negative); Leukocyte Small (Negative); Nitrite Negative (Negative); Protein, Urine (Dipstick) > or equal to 300 mg/dL (Neg-Trace); Urobilinogen 0.2 mg/dL (0.2-1.0); pH, Urine 5.5 (5.0-9.0)
[2018-12-29 10:16] LABS: ALT (SGPT) 16 U/L (8-55); AST (SGOT) 17 U/L (5-34); Albumin 4.2 g/dL (3.4-4.8); Alkaline Phosphatase 70 U/L (40-150); Anion Gap 17 mmol/L (10-20); BUN (Urea Nitrogen) 35 mg/dL (8.4-25.7); Bilirubin, Total 0.6 mg/dL (0.2-1.2); Calc. Creatinine Clearance 0 mL/min (70-130); Calcium 9.8 mg/dL (7.8-10.44); Carbon Dioxide 28 mmol/L (23-31); Chloride 103 mmol/L (98-107); Estimated GFR-MDRD 33; Globulin 2.7 g/dL (2.4-3.5); Glucose 109 mg/dL (83-110); Magnesium 2.1 mg/dL (1.6-2.6); Potassium 3.7 mmol/L (3.5-5.1); Protein, Total 6.9 g/dL (5.8-8.1); Sodium 144 mmol/L (136-145)
[2018-12-29 10:19] LABS: Bacteria/HPF 2+ HPF (None Seen)
[2018-12-29 10:20] LABS: Other Casts/LPF 4-6 MIXED CASTS LPF (0-3 Hyaline)
[2018-12-29] MEDS ORDERED: Cefepime 2 GM VIAL ONE (10:24)
[2018-12-29] MEDS ORDERED: Sodium Chloride 0.9% 250 ML 0 ML ONE (10:54)
[2018-12-29] MEDS ORDERED: Norepinephrine 4 MG/4 ML VIAL ONE ×2 (10:54→10:55)
== END 2018-12-29 11:45 | disposition short-term general hospital (02) ==
LOC: MADERS 08:41
DX: R65.21 Severe sepsis with septic shock (principal); N17.9 Acute kidney failure, unspecified; E78.5 Hyperlipidemia, unspecified; I10 Essential (primary) hypertension; Z87.891 Personal history of nicotine dependence; Z79.899 Other long term (current) drug therapy
CPT/HCPCS: 71045; 80053; 81003; 81015; 83605; 83735; 84443; 84484; 85025; 87040; 93005; 96365; 96367; 96368; 99292; J0692; J3370; J3490; J7050; J7070

== ENCOUNTER 2019-03-19 09:32 | Emergency (ER) | payer MEDICARE ==
[2019-03-19 10:52] LABS: ALT (SGPT) 16 U/L (8-55); AST (SGOT) 22 U/L (5-34); Alkaline Phosphatase 70 U/L (40-150); Anion Gap 12 mmol/L (10-20); BUN (Urea Nitrogen) 15 mg/dL (8.4-25.7); Calc. Creatinine Clearance 0 mL/min (70-130); Calcium 9.2 mg/dL (7.8-10.44); Carbon Dioxide 34 mmol/L (23-31); Chloride 97 mmol/L (98-107); Estimated GFR-MDRD 46; Globulin 2.8 g/dL (2.4-3.5); Glucose 94 mg/dL (83-110); Potassium 3.4 mmol/L (3.5-5.1); Protein, Total 6.8 g/dL (5.8-8.1); Sodium 140 mmol/L (136-145)
[2019-03-19 11:08] LABS: Eosinophils 1 % (0-10); Hemoglobin 12.3 g/dL (14.0-18.0); Lymphocytes 3 % (21-51); MDiff Complete? YES; Mean Corpuscular HGB CONC 31.7 g/dL (32.0-36.0); Mean Corpuscular Hemoglobin 28.3 pg (27.0-31.0); Mean Corpuscular Volume 89.3 fL (78.0-98.0); Mean Platelet Volume 7.7 fL (7.4-10.4); Metamyelocyte 1 % (0-0); Monocytes 3 % (0-10); Neutrophil 83 % (42-75); Platelet Count 115 thou/uL (130-400); Platelet Morphology Comment PLT clumps seen-LOW; RBC Distribution Width 14.6 % (11.5-14.5); RBC Morphology Normal; Reactive Lymphocytes 9 % (0-10); Red Blood Cell (RBC) Count 4.34 mill/uL (4.70-6.10); White Blood Cell (WBC) Count 6.8 thou/uL (4.8-10.8)
[2019-03-19 11:17] LABS: Bilirubin Negative (Negative); Blood, Urine Small (Negative); Clarity Cloudy (Clear); Glucose, Urine (Dipstick) Negative (Negative); Leukocyte Moderate (Negative); Nitrite Positive (Negative); Protein, Urine (Dipstick) Trace mg/dL (Neg-Trace); Urobilinogen 0.2 mg/dL (0.2-1.0)
[2019-03-19 11:26] LABS: Bacteria/HPF 3+ HPF (None Seen); Squamous Epithelial 0-3 HPF (0-3)
--- NOTE | 2019-03-19 11:31 | RAD ---
EXAM: Portable chest PROVIDED CLINICAL HISTORY: Fever COMPARISON: 12/29/2018 FINDINGS: Cardiac and mediastinal silhouette is within normal limits. No focal consolidation, pleural fluid or pneumothorax evident. Persistent elevation of the right hemidiaphragm with stable blunting of the right costophrenic angle. IMPRESSION: Stable radiographic appearance of the chest.
[2019-03-19] MEDS ORDERED: Sodium Chloride 0.9% 100 ML ONE (11:32)
[2019-03-19] MEDS ORDERED: cefTRIAXone\\ROCEPHIN 1 GM VIAL ONE ×2 (11:32→11:37)
== END 2019-03-19 13:04 | disposition home or self-care (01) ==
LOC: MADERS 09:32
DX: N30.90 Cystitis, unspecified without hematuria (principal); E78.5 Hyperlipidemia, unspecified; I10 Essential (primary) hypertension; Z87.891 Personal history of nicotine dependence; Z79.899 Other long term (current) drug therapy; Z79.82 Long term (current) use of aspirin
CPT/HCPCS: 36415; 71045; 80053; 81003; 81015; 83605; 84443; 85025; 87040; 87077; 87086; 87186; 96365; J0696; J3490

== ENCOUNTER 2019-03-20 03:34 | Emergency (ER) | payer MEDICARE | END 2019-03-20 04:13 | disposition home or self-care (01) | LOC: MADERS 03:34 | DX: N39.0 Urinary tract infection, site not specified (principal); E78.5 Hyperlipidemia, unspecified; I10 Essential (primary) hypertension; Z87.891 Personal history of nicotine dependence; Z79.899 Other long term (current) drug therapy; Z79.2 Long term (current) use of antibiotics; Z79.82 Long term (current) use of aspirin | CPT/HCPCS: 99281 ==

== ENCOUNTER 2022-11-08 11:24 | Emergency (ER) | payer OTHER ==
[2022-11-08] MEDS ORDERED: hydrALAZINE 20 MG/ML VIAL ONE (12:34)
[2022-11-08 12:50] LABS: Anion Gap 16 mmol/L (10-20); BUN (Urea Nitrogen) 27 mg/dL (8.4-25.7); Calc. Creatinine Clearance 0 mL/min (70-130); Carbon Dioxide 29 mmol/L (23-31); Chloride 102 mmol/L (98-107); Estimated GFR 41; Glucose 85 mg/dL (83-110); Potassium 3.8 mmol/L (3.5-5.1); Sodium 143 mmol/L (136-145)
== END 2022-11-08 13:37 | disposition home or self-care (01) ==
LOC: MADERS 11:24
DX: I10 Essential (primary) hypertension (principal); E78.00 Pure hypercholesterolemia, unspecified; Z86.73 Personal history of transient ischemic attack (TIA), and cerebral infarction without residual deficits; Z87.891 Personal history of nicotine dependence
CPT/HCPCS: 80048; 96374; J0360

== ENCOUNTER 2024-02-04 10:36 | Emergency (ER) | payer OTHER | END 2024-02-04 12:00 | disposition home or self-care (01) | LOC: MADERS 10:36 | DX: M10.9 Gout, unspecified (principal); I10 Essential (primary) hypertension; E78.5 Hyperlipidemia, unspecified; Z86.73 Personal history of transient ischemic attack (TIA), and cerebral infarction without residual deficits; Z79.82 Long term (current) use of aspirin; Z79.899 Other long term (current) drug therapy; Z87.891 Personal history of nicotine dependence ==

== ENCOUNTER 2024-04-13 10:09 | Emergency (ER) | payer OTHER | END 2024-04-13 10:35 | disposition home or self-care (01) | LOC: MADERS 10:09 | DX: R05.9 Cough, unspecified (principal); I10 Essential (primary) hypertension; E78.5 Hyperlipidemia, unspecified; M10.9 Gout, unspecified; Z20.828 Contact with and (suspected) exposure to other viral communicable diseases; Z87.891 Personal history of nicotine dependence; Z79.82 Long term (current) use of aspirin; Z86.73 Personal history of transient ischemic attack (TIA), and cerebral infarction without residual deficits | CPT/HCPCS: 99283 ==

== ENCOUNTER 2024-04-28 16:56 | Emergency (ER) | payer OTHER | END 2024-04-28 17:40 | disposition home or self-care (01) | LOC: MADERS 16:56 | DX: U07.1 COVID-19 (principal); I10 Essential (primary) hypertension; Z87.891 Personal history of nicotine dependence | CPT/HCPCS: 99283 ==

== ENCOUNTER 2024-07-09 14:03 | Emergency (ER) | payer MEDICARE, OTHER ==
[2024-07-09 14:37] LABS: Bilirubin Negative (Negative); Blood, Urine Trace (Negative); Glucose, Urine (Dipstick) Negative (Negative); Ketone, Urine Negative (Negative); Leukocyte Small (Negative); Nitrite Positive (Negative); Protein, Urine (Dipstick) Negative (Neg-Trace); Specific Gravity, Urine 1.015 (1.005-1.030); Urobilinogen 0.2 mg/dL (Less than 2); pH, Urine 6.5 (5.0-9.0)
[2024-07-09 14:38] LABS: Clarity Hazy (Clear)
[2024-07-09 14:55] LABS: Bacteria/HPF 4+ HPF (None Seen); CAUTI Indications for Culture Pelvic or flank pain; RBC/HPF 0-3 HPF (0-3); WBC/HPF Greater Than 50 HPF (0-3)
[2024-07-09 14:56] LABS: Urine Culture Reflex Yes Yes
== END 2024-07-09 15:13 | disposition home or self-care (01) ==
LOC: MADERS 14:03
DX: N39.0 Urinary tract infection, site not specified (principal); I12.9 Hypertensive chronic kidney disease with stage 1 through stage 4 chronic kidney disease, or unspecified chronic kidney disease; N18.9 Chronic kidney disease, unspecified; Z79.82 Long term (current) use of aspirin; Z87.891 Personal history of nicotine dependence
CPT/HCPCS: 81001; 87077; 87086; 87186; 99283

== ENCOUNTER 2024-09-15 13:31 | Emergency (ER) | payer OTHER | END 2024-09-15 14:30 | disposition home or self-care (01) | LOC: MADERS 13:31 | DX: M10.9 Gout, unspecified (principal); I10 Essential (primary) hypertension; Z87.891 Personal history of nicotine dependence; Z79.899 Other long term (current) drug therapy | CPT/HCPCS: 99283 ==